=== PATIENT | male | born 1960 | race Hispanic/Latino ===

== ENCOUNTER 2017-06-20 10:03 | Emergency (ER) | payer OTHER, SELFPAY ==
--- NOTE | 2017-06-20 11:26 | CT ---
CT OF BRAIN PERFORMED WITHOUT CONTRAST ENHANCEMENT: HISTORY: Loss of consciousness after concrete fell on head. FINDINGS: Ventricular and cisternal system is within normal limits. There are no signs of intracerebral hemorr sergei or extraaxial fluid collections. Mastoid air cells are poorly aerated. The visualized sinuses are clear. IMPRESSION: No acute intracranial abnormalities. POS: C
--- NOTE | 2017-06-20 11:43 | CT ---
CT CERVICAL SPINE WITHOUT CONTRAST: HISTORY: [place] fell on patient's head. Loss of consciousness. COMPARISON: None. TECHNIQUE: Noncontrast cervical spine CT is performed in the axial plane. Reformatted images are submitted for interpretation. FINDINGS: C1 ring is intact. There is a fracture involving the right body of C2 with inferior extension. The fracture line does involve the right lateral mass or C2. Fracture lucency does cross midline and in volve the left lateral mass of C2 as well. Fracture involves the left foramen transversarium as well as the right foramen transversarium at C2. There is resultant subluxation of C2 with respect to C3. The C3, C4, C5, C6, and C7 vertebral bodies are intact. There is no vertebral body fracture. Cunningham harman, there is a fracture involving the left foramen transversarium at C3. There are varying degrees of central canal stenosis and foraminal narrowing on the basis of degenerat christel change. Evaluation is limited by technique. IMPRESSION: C2 and C3 fractures as defined above. Results of the study discussed with Dr. Contreras 06/20/17 at 11:17 a.m. CODE CR POS: VERNA
--- NOTE | 2017-06-20 12:51 | CT ---
CT ANGIOGRAM NECK WITH IV CONTRAST AND 3D RECONSTRUCTIONS: DATE: 06/20/17. HISTORY: [place] fell on patient's head. Positive loss of consciousness. The patient has C2 and C3 fracture s. TECHNIQUE: Contiguous axial CT images are obtained through the neck after the administration of intravenous cont rast from the level of the proximal portion of the thoracic aorta to the skull base after the adminis tration of intravenous contrast. Three-D reconstruction images are provided. FINDINGS: Fractures involving the C2 and C3 vertebral bodies are noted as seen on CT cervical spine obtained pr ior to this exam. The thoracic aortic arch is patent. The left common carotid artery arises from the innominate artery . The great vessels are patent. The bilateral common carotid arteries as well as bilateral internal and external carotid arteries are patent. The vertebral arteries are codominant and are patent bilaterally. The basilar artery is patent. The visualized middle cerebral arteries are patent. Posterior cerebral arteries are also patent. Th ere is a patent and prominent left posterior communicating artery visualized. There is a suggestion of mild narrowing involving the most proximal P1 segment of the left posterior cerebral artery, but a gain the left posterior communicating artery is prominent in size and patent. No enlarged lymph nodes are seen by CT size criteria. The bilateral parotid and submandibular glands have a normal CT appearance. The prevertebral soft tissues are within normal limits. The visualized upper lungs demonstrate densities likely related to atelectasis. IMPRESSION: 1. Fractures involving the C2 and C3 vertebral bodies better described on the CT cervical spine also obtained earlier on this date. 2. Vertebral arteries are patent bilaterally without findings to suggest an arterial injury. 3. Patent bilateral internal and external carotid arteries. POS: [facility]
[2017-06-20] MEDS ORDERED: HYDROcodone/Acetaminophen 5/325 mg Tablet ONE (13:47)
[2017-06-20] MEDS ORDERED: ISOVUE-370 76%-LOCM 1 ML ONE (17:19)
== END 2017-06-20 13:56 | disposition home or self-care (01) ==
LOC: ERS 10:03
DX: S12.200A Unspecified displaced fracture of third cervical vertebra, initial encounter for closed fracture (principal); S12.100A Unspecified displaced fracture of second cervical vertebra, initial encounter for closed fracture; S00.83XA Contusion of other part of head, initial encounter; F41.9 Anxiety disorder, unspecified; F17.210 Nicotine dependence, cigarettes, uncomplicated; W20.8XXA Other cause of strike by thrown, projected or falling object, initial encounter
CPT/HCPCS: 70450; 70498; 72125; 96374; L0174